=== PATIENT | female | born 1960 | race Caucasian/White ===

== ENCOUNTER 2020-01-14 20:10 | Emergency (ER) | payer MEDICARE, BC ==
[2020-01-14] MEDS ORDERED: ASPIRIN 81 MG TABLET, CHEWABLE PO ONE (21:45)
--- NOTE | 2020-01-14 21:47 | ER Document Report ---
ED Medical Screen (RME) - General Chief Complaint: Chest Pain Stated Complaint: CHEST PAIN Time Seen by Provider: 01/14/20 21:41 - HPI Notes: 01/14/20 21:46 Patient is a 59-year-old female with a history of hypertension, breast/kidney cancer in remission who presents complaining of midsternal chest pain that began this evening and feels like a dull pain that will intensify intermittently. The pain does not radiate. She is able to eat and drink without difficulty. She is urinating normally. No history of DVT, PE, CAD, CVA. She is not on any blood thinning medications aside from a baby aspirin daily. No fever or URI symptoms. I have treated and performed a rapid initial assessment of this patient. A comprehensive ED assessment and evaluation of the patient, analysis of test results and completion of medical decision making process will be conducted by additional ED providers. PHYSICAL EXAMINATION: GENERAL: Well-appearing, well-nourished and in no acute distress. A&Ox4. Answers questions appropriately. Heart: RRR Lungs: CTAB Extremities: No obvious edema. Sudrashan negative bilaterally. - Related Data Allergies/Adverse Reactions: prochlorperazine [From Compazine] Allergy (Verified 01/14/20 21:40) Physical Exam - Vital signs Vitals: Temp Pulse Resp BP Pulse Ox 98.1 F 86 18 137/85 H 100 01/14/20 21:10 01/14/20 21:10 01/14/20 21:10 01/14/20 21:10 01/14/20 21:10 Course - Vital Signs Vital signs: Temp Pulse Resp BP Pulse Ox 98.1 F 86 18 137/85 H 100 01/14/20 21:10 01/14/20 21:10 01/14/20 21:10 01/14/20 21:10 01/14/20 21:10
--- NOTE | 2020-01-14 23:10 | RADIOLOGY REPORT (SQ) ---
EXAM DESCRIPTION: X-RAY CHEST 2 VIEWS CLINICAL HISTORY: 59 years, Female, CP COMPARISON: None. FINDINGS: PA and lateral chest radiographs were performed. The lungs are well expanded and clear. The costophrenic sulci are sharp. The cardiac silhouette, hilar regions, trachea, soft tissues and bony structures are unremarkable. IMPRESSION: No acute cardiopulmonary disease.
[2020-01-14 23:59] LABS: ABSOLUTE BASOPHILS # (AUTO) 0.1 10^3/uL (0.0-0.2); ABSOLUTE EOSINOPHILS # (AUTO) 0.3 10^3/uL (0.0-0.6); ABSOLUTE LYMPHOCYTES (AUTO) 1.7 10^3/uL (0.5-4.7); ABSOLUTE MONOCYTES (AUTO) 0.7 10^3/uL (0.1-1.4); ABSOLUTE NEUT (AUTO) 5.4 10^3/uL (1.7-8.2); BASOPHILS % (AUTO) 0.9 % (0-2); EOSINOPHILS % (AUTO) 3.1 % (0-6); HEMATOCRIT 40.2 % (36.0-47.0); HEMOGLOBIN 14.2 g/dL (12.0-15.5); LYMPHOCYTES % (AUTO) 21.2 % (13-45); MEAN CORPUSCULAR HGB CONC 35.2 g/dL (32.0-36.0); MEAN CORPUSCULAR VOLUME 79 fl (80-97); MONOCYTES % (AUTO) 8.6 % (3-13); PLATELET COUNT 206 10^3/uL (150-450); RED BLOOD COUNT 5.07 10^6/uL (3.72-5.28); RED CELL DISTRIBUTION WIDTH 14.3 % (11.5-14.0); SEGMENTED NEUTROPHILS % (AUTO) 66.2 % (42-78); TOTAL CELLS COUNTED % (AUTO) 100 %; WHITE BLOOD COUNT 8.2 10^3/uL (4.0-10.5)
[2020-01-15 00:28] LABS: ALBUMIN 4.5 g/dL (3.5-5.0); ALKALINE PHOSPHATASE 98 U/L (38-126); ANION GAP 12 (5-19); ASPARTATE AMINO TRANSFERASE 26 U/L (14-36); BILIRUBIN,DIRECT 0.3 mg/dL (0.0-0.4); BILIRUBIN,TOTAL 0.3 mg/dL (0.2-1.3); BLOOD UREA NITROGEN 27 mg/dL (7-20); CALCIUM 10.5 mg/dL (8.4-10.2); CARBON DIOXIDE 26 mmol/L (22-30); CHLORIDE 102 mmol/L (98-107); GLUCOSE 90 mg/dL (75-110); TOTAL PROTEIN 7.2 g/dL (6.3-8.2)
--- NOTE | 2020-01-15 00:59 | ER Document Report ---
ED Cardiac - General Chief Complaint: Chest Pain Stated Complaint: CHEST PAIN Time Seen by Provider: 01/14/20 21:41 Primary Care Provider: NELSON SOLORIO NP [Primary Care Provider] - Follow up as needed Notes: Patient is a 59-year-old female that comes to the emergency department for chief complaint of chest pain. She states that she started having intermittent pain while she was out working in the yard then as she was completing work at about 5 PM she started having constant pain which feels like a pressure underneath the sternum. She states she cannot get comfortable since that time. She denies vomiting, dizziness, passing out, shortness of breath. She states she was diagnosed with a possible RI several years ago but had a negative cardiac cath at that time, she has never had a stent. She has a history of hypertension, breast cancer, kidney cancer, previously on chemotherapy years ago but not now. She denies smoking. TRAVEL OUTSIDE OF THE [place] IN LAST 30 DAYS: No - Related Data Allergies/Adverse Reactions: prochlorperazine [From Compazine] Allergy (Verified 01/14/20 21:40) Past Medical History - General Information source: Patient - Social History Smoking Status: Former Smoker Chew tobacco use (# tins/day): No Frequency of alcohol use: None Drug Abuse: None Lives with: Family Family History: Reviewed & Not Pertinent Patient has suicidal ideation: No Patient has homicidal ideation: No - Past Medical History Cardiac Medical History: Reports: Hx Hypertension Malignancy Medical History: Reports: Hx Breast Cancer, Hx Renal (Kidney) Cancer Past Surgical History: Reports: Hx Cardiac Catheterization - Immunizations Immunizations up to date: Yes Hx Diphtheria, Pertussis, Tetanus Vaccination: Yes Review of Systems - Review of Systems Constitutional: No symptoms reported EENT: No symptoms reported Cardiovascular: See HPI Respiratory: No symptoms reported Gastrointestinal: No symptoms reported Genitourinary: No symptoms reported Female Genitourinary: No symptoms reported Musculoskeletal: No symptoms reported Skin: No symptoms reported Hematologic/Lymphatic: No symptoms reported Neurological/Psychological: No symptoms reported Physical Exam - Vital signs Vitals: Temp Pulse Resp BP Pulse Ox 98.1 F 86 18 137/85 H 100 01/14/20 21:10 01/14/20 21:10 01/14/20 21:10 01/14/20 21:10 01/14/20 21:10 - Notes Notes: GENERAL: Patient appears slightly restless and uncomfortable but is not in severe distress HEAD: Normocephalic, atraumatic. EYES: Pupils equal, round, and reactive to light. Extraocular movements intact. ENT: Oral mucosa moist, tongue midline. Oropharynx unremarkable. Airway patent. LUNGS: Clear to auscultation bilaterally, no wheezes, rales, or rhonchi. No respiratory distress. No pain with palpation over the chest. HEART: Regular rate and rhythm. No murmur ABDOMEN: Soft, non-tender. Non-distended. Bowel sounds present in all 4 quadrants. GENITOURINARY: Deferred EXTREMITIES: Moves all 4 extremities spontaneously. No edema, normal radial and dorsalis pedis pulses bilaterally. No cyanosis. BACK: no cervical, thoracic, lumbar midline tenderness. No saddle anesthesia, normal distal neurovascular exam. Moves all extremities in full range of motion. NEUROLOGICAL: Alert and oriented x3. Normal speech. Cranial nerves II through XII grossly intact. PSYCH: Restless and mildly anxious SKIN: Warm, dry, normal turgor. No rashes or lesions noted. Course - Re-evaluation Re-evalutation: 01/15/20 01:00 On my evaluation patient has a concerning history, current chest pain, elevated troponin at 2.2. EKG does not show ischemic T wave inversions or ST segment changes in consecutive leads, no STEMI, evaluation is consistent with an NSTEMI. Sinus rhythm with no noted arrhythmia. Normal axis. I repeated an EKG, this does not show evolving changes. Patient has been given aspirin, she states she took one 81 mg of aspirin at home and she was given 243 mg here, patient is being given sublingual nitroglycerin and Lovenox. Patient will be closely reevaluated to treat her until she is chest pain-free. Discussed with Dr. Leal. CBC, chemistry, chest x-ray unremarkable. Discussed with patient, we do not have interventional cardiology, she requests to go to [facility]. [place] is on significant ventilator, discussed with patient, she would like to go to [place]. Patient has been accepted to [facility], accepting is Dr. Tapia. 01/15/20 01:51 Patient has been reevaluated bedside, she is completely chest pain-free at this time, unremarkable vital signs. 01/15/20 03:17 EMS crew is here, patient is still chest pain-free, no significant change in vital signs, patient has no current complaints. Patient is stable for transport. - Vital Signs Vital signs: Temp Pulse Resp BP Pulse Ox 97.8 F 80 19 123/65 95 01/15/20 03:01 01/15/20 00:51 01/15/20 03:01 01/15/20 03:01 01/15/20 03:01 - Laboratory Result Diagrams: 01/14/20 23:25 01/14/20 23:25 Laboratory results interpreted by me: 01/14/20 01/14/20 23:25 23:25 MCV 79 L RDW 14.3 H BUN 27 H Est GFR (MDRD) Non-Af 56 L Calcium 10.5 H Discharge - Discharge Clinical Impression: NSTEMI (non-ST elevated myocardial infarction) Chest pain Qualifiers: Chest pain type: chest pain due to myocardial ischemia Ischemic chest pain type: unspecified angina pectoris type Qualified Code(s): I25.9 - Chronic ischemic heart disease, unspecified Condition: Fair Disposition: [facility], [facility] Referrals: NELSON SOLORIO NP [Primary Care Provider] - Follow up as needed
[2020-01-15] MEDS ORDERED: ENOXAPARIN SODIUM INJ 100 MG/1 ML DISP.SYRIN SUBCUT SCH (01:00)
[2020-01-15] MEDS: NITROGLYCERIN 0.4 MG/TAB 25 TAB/BOTTLE SL PRN ×2 (01:07→01:16)
[2020-01-15] MEDS ORDERED: FENTANYL CITRATE INJ/PF 100 MCG/2 ML AMPUL IV ONE (01:30)
[2020-01-15] MEDS ORDERED: ONDANSETRON HCL INJ/PF 4 MG/2 ML SDV IV ONE (01:30)
[2020-01-15 03:28] VITALS: BP 123/65
--- NOTE | 2020-01-15 11:52 | EKG REPORT ---
SEVERITY:- BORDERLINE ECG - SINUS RHYTHM CONSIDER ANTERIOR INFARCT : Confirmed by: Barrie Viera 15-Jan-2020 11:52:33
--- NOTE | 2020-01-15 11:53 | EKG REPORT ---
SEVERITY:- BORDERLINE ECG - SINUS RHYTHM CONSIDER ANTERIOR INFARCT : Confirmed by: Barrie Viera 15-Jan-2020 11:52:46
== END 2020-01-15 03:28 | disposition short-term general hospital (02) ==
LOC: ER 20:10
DX: I21.4 Non-ST elevation (NSTEMI) myocardial infarction (principal); I25.9 Chronic ischemic heart disease, unspecified; R07.9 Chest pain, unspecified; I10 Essential (primary) hypertension; Z85.3 Personal history of malignant neoplasm of breast; Z85.528 Personal history of other malignant neoplasm of kidney; Z87.891 Personal history of nicotine dependence
CPT/HCPCS: 93005; 99285; 96372; 96374; 96375; 36415; 85025; 80053; 84484; 71046; 93010; A9270 ×2; J3010; J2405; J1650